=== PATIENT | female | born 1990 | race Caucasian/White ===

== ENCOUNTER → 2023-12-24 | Outpatient (CLI) | payer OTHER ==
[~2023-12-24] MED LIST: Bactrim Ds Tab1 EACH PO; HYDR1TAB94 PO; IBUP800; IBUP800 PO; OXYACE5T; Prilosec Otc20 MG; Verotin-Gr Cap1 EACH PO
[2024-01-01 09:54] LABS: HPV GENOTYPE 16 Not Detected; HPV GENOTYPE 18 Not Detected; HPV HIGH RISK Not Detected; HPV SOURCE Cervical
== END ==
LOC: LAB SHORT 17:51 → LAB 17:51
PROVIDERS: Family Medicine
DX: Z01.419 Encounter for gynecological examination (general) (routine) without abnormal findings (principal)
CPT/HCPCS: 87624; G0123